=== PATIENT | male | born 1985 | race Caucasian/White ===

== ENCOUNTER 2016-06-10 18:21 | Emergency (ER) | payer BC ==
[2016-06-10 18:44] VITALS: BP 144/75
--- NOTE | 2016-06-10 19:52 | ER Document Report ---
ED Hand/Wrist Injury - General Chief Complaint: Hand Pain Stated Complaint: RIGHT HAND INJURY Mode of Arrival: Ambulatory Information source: Patient Notes: 30-year-old male presents to the emergency department complaining of right hand pain. Patient reports punched a door with a closed fist this afternoon. Denies numbness, tingling, or color changes. TRAVEL OUTSIDE OF THE [place] IN LAST 30 DAYS: No - HPI Injury to: Hand Onset: Just prior to arrival Timing: Still present Quality of pain: Achy Severity: Mild Pain Level: 2 Context: Blow - Related Data Allergies/Adverse Reactions: fluticasone propionate [From Advair Diskus] Adverse Reaction (Verified 01/20/13 19:25) salmeterol xinafoate [From Advair Diskus] Adverse Reaction (Verified 01/20/13 19 :25) Past Medical History - General Information source: Patient - Social History Smoking Status: Never Smoker Frequency of alcohol use: Social Drug Abuse: None Lives with: Family Family History: Reviewed & Not Pertinent Pulmonary Medical History: Reports: Hx Asthma, Hx Bronchitis Renal/ Medical History: Denies: Hx Peritoneal Dialysis Past Surgical History: Reports: Hx Orthopedic Surgery - Right foot - Immunizations Hx Diphtheria, Pertussis, Tetanus Vaccination: Yes Review of Systems - Review of Systems Constitutional: No symptoms reported EENT: No symptoms reported Cardiovascular: No symptoms reported Respiratory: No symptoms reported Gastrointestinal: No symptoms reported Genitourinary: No symptoms reported Male Genitourinary: No symptoms reported Musculoskeletal: See HPI Skin: No symptoms reported Hematologic/Lymphatic: No symptoms reported Neurological/Psychological: No symptoms reported -: Yes All other systems reviewed and negative Physical Exam - Vital signs Vitals: Temp Pulse Resp BP Pulse Ox 98.5 F 93 16 144/75 H 95 06/10/16 18:41 06/10/16 18:41 06/10/16 18:41 06/10/16 18:41 06/10/16 18:41 - General General appearance: Appears well, Alert In distress: None - HEENT Head: Normocephalic, Atraumatic Eyes: Normal Pupils: PERRL - Respiratory Respiratory status: No respiratory distress Chest status: Nontender Breath sounds: Normal Chest palpation: Normal - Cardiovascular Rhythm: Regular Heart sounds: Normal auscultation Murmur: No Pulses: Normal: Radial Normal capillary refill: Yes - Back Back: Normal, Nontender - Extremities General upper extremity: Normal inspection, Nontender, Normal color, Normal ROM , Normal strength, Normal temperature. No: Edema General lower extremity: Normal inspection, Nontender, Normal color, Normal ROM , Normal strength, Normal temperature, Normal weight bearing. No: Edema Shoulder: Normal, Nontender Arm: Normal, Nontender Elbow: Normal, Nontender Forearm: Normal, Nontender Wrist: Normal, Nontender. No: Axial load of thumb pain, Deformity, Dislocation , Ecchymosis, Instability, Limited ROM, Navicular tenderness Hand: Tender - Tenderness to palpation to mid dorsal lateral aspect of right hand over the fourth and fifth metacarpal area. No gross deformity or instability. Full but painful active and against resistance range of motion. Neurovascular function intact with immediate capillary refill and distal sensation intact, Ecchymosis, Swelling. No: Deformity, Instability, Laceration , Tendon deficit - Neurological Neuro grossly intact: Yes Cognition: Normal Orientation: AAOx4 [place] Coma Scale Eye Opening: Spontaneous [place] Coma Scale Verbal: Oriented [place] Coma Scale Motor: Obeys Commands D[place] Coma Scale Total: 15 Speech: Normal Motor strength normal: LUE, RUE, LLE, RLE Sensory: Normal - Skin Skin Temperature: Warm Skin Moisture: Dry Skin Color: Normal Course - Re-evaluation Re-evalutation: 06/10/16 20:52 Patient hemodynamically stable, in no distress. X-rays shows nondisplaced fracture of base of fifth right metacarpal. Old healed distal fifth metacarpal fracture and questionable lucency to the distal ulna however patient is not tender to that area. Neurovascular function intact. Splint placed. Patient appears stable for discharge and agrees with home care, follow-up with orthopedics, and ED return precautions. - Vital Signs Vital signs: Temp Pulse Resp BP Pulse Ox 98.5 F 93 16 144/75 H 95 06/10/16 18:41 06/10/16 18:41 06/10/16 18:41 06/10/16 18:41 06/10/16 18:41 - Diagnostic Test Radiology reviewed: Image reviewed, Reports reviewed Procedures - Immobilization Right Arm Time completed: 20:54 Pre-Proc Neuro Vasc Exam: Normal Immobilizer type: Volar splint - Volar and dorsal splint extending from MCP's to distal third forearm., Sling Performed by: PCT Post-Proc Neuro Vasc Exam: Normal Alignment checked and good: Yes Discharge - Discharge Clinical Impression: Fracture, metacarpal Qualifiers: Encounter type: initial encounter Metacarpal bone: fifth Fracture type: closed Metacarpal location: base Fracture alignment: nondisplaced Laterality: right Condition: Stable Disposition: HOME, SELF-CARE Instructions: Fractured Metacarpal ([facility]), Splint Precautions ([facility]), Oral Narcotic Medication ([facility]), Temporary Sling ([facility]), Ice & Elevation ([facility]), Use of [id number] Ibuprofen ([facility]) Additional Instructions: Follow-up with orthopedics on Sunday as discussed. Returned to the Emergency Department for any worsening symptoms or concerns. Prescriptions: Hydrocodone/Acetaminophen [[place] 5-325 mg Tablet] 1 tab PO Q6H PRN #8 tablet PRN Reason: Forms: Elevated Blood Pressure Referrals: CRYSTAL WANG MD [Primary Care Provider] - Follow up in 3-5 days JENNY SHIPMAN DO [ACTIVE STAFF] - 06/12/16
== END 2016-06-10 21:03 | disposition home or self-care (01) ==
LOC: ER 18:21
PROC: 2W3CX1Z Immobilization of Right Lower Arm using Splint (ICD-10-PCS; principal; 2016-06-10)
DX: S62.316A Displaced fracture of base of fifth metacarpal bone, right hand, initial encounter for closed fracture (principal); M79.641 Pain in right hand; W22.01XA Walked into wall, initial encounter
CPT/HCPCS: 99283

== ENCOUNTER 2016-06-11 05:18 | Emergency (ER) | payer BC ==
--- NOTE | 2016-06-11 05:24 | ER Document Report ---
Doctor's Note Notes: 06/11/16 05:23 I performed a quick triage evaluation the patient. Patient is a 22-year-old male who presents from home with difficulty breathing. He has a history of asthma. He is out of his inhaler. He received 2 DuoNeb treatments in route via the paramedics. He received Solu-Medrol. He is feeling improved. He takes denies any fevers or recent infections. Patient still has some scattered wheezing. I'll give him 2 g magnesium. We'll keep him on a monitor to make sure he continues to improve and do well. Dictation of this chart was performed using voice recognition software; therefore, there may be some unintended grammatical errors.
[2016-06-11] MEDS: MAGNESIUM SULFATE/D5W 100 ML IV SCH ×2 (05:34→05:55)
--- NOTE | 2016-06-11 06:17 | ER Document Report ---
ED Respiratory Problem - General Mode of Arrival: Medic Information source: Patient TRAVEL OUTSIDE OF THE [place] IN LAST 30 DAYS: No - HPI Patient complains to provider of: Asthma Onset: Yesterday Duration: Better EMS treatments: Bronchodilators, Solumedrol Associated symptoms: Difficulty breathing, Short of breath, Wheezing Recently seen / treated by doctor: Yes - General Chief Complaint: Breathing Difficulty Stated Complaint: DIFFICULTY BREATHING Notes: Patient is a 30-year-old male with a history of asthma presenting to the emergency department this morning with concerns of difficulty breathing. Patient was seen here yesterday for a broken arm, and states that his symptoms actually started at that time, but he thought that he had his inhaler at home. Patient states that he let his mom reasons his inhaler when she needed it, and she accidentally took it home with her. Patient denies any cold or flu symptoms. Patient was given 2 Albuterol treatments, 1A&A and 125mg Solumedrol en route by EMS. (JAYDA MARROQUIN) - Related Data Allergies/Adverse Reactions: fluticasone propionate [From Advair Diskus] Adverse Reaction (Verified 01/20/13 19:25) salmeterol xinafoate [From Advair Diskus] Adverse Reaction (Verified 01/20/13 19 :25) Past Medical History - General Information source: Patient - Social History Smoking Status: Never Smoker Occupation: [employer] Lives with: Alone Family History: Reviewed & Not Pertinent Pulmonary Medical History: Reports: Hx Asthma, Hx Bronchitis Renal/ Medical History: Denies: Hx Peritoneal Dialysis Past Surgical History: Reports: Hx Orthopedic Surgery - Right foot - Immunizations Hx Diphtheria, Pertussis, Tetanus Vaccination: Yes Review of Systems - Review of Systems Constitutional: No symptoms reported EENT: No symptoms reported Cardiovascular: No symptoms reported Respiratory: See HPI, Short of breath, Wheezing Gastrointestinal: No symptoms reported Genitourinary: No symptoms reported Male Genitourinary: No symptoms reported Musculoskeletal: No symptoms reported Skin: No symptoms reported Hematologic/Lymphatic: No symptoms reported Neurological/Psychological: No symptoms reported -: Yes All other systems reviewed and negative Physical Exam - Vital signs Interpretation: Normal - General General appearance: Appears well, Alert - HEENT Head: Normocephalic, Atraumatic Eyes: Normal Pupils: PERRL - Respiratory Respiratory status: No respiratory distress Chest status: Nontender Breath sounds: Wheezing - Mild expiratory wheeze Chest palpation: Normal - Cardiovascular Rhythm: Regular Heart sounds: Normal auscultation Murmur: No - Abdominal Inspection: Normal Distension: No distension Bowel sounds: Normal Tenderness: Nontender Organomegaly: No organomegaly - Back Back: Normal, Nontender - Extremities General lower extremity: Normal inspection, Nontender Forearm: Other - Splint over right forearm - Neurological Neuro grossly intact: Yes Cognition: Normal Orientation: AAOx4 [place] Coma Scale Eye Opening: Spontaneous [place] Coma Scale Verbal: Oriented [place] Coma Scale Motor: Obeys Commands [place] Coma Scale Total: 15 Speech: Normal - Psychological Associated symptoms: Normal affect, Normal mood - Skin Skin Temperature: Warm Skin Moisture: Dry Skin Color: Normal - Vital signs Vitals: Resp Pulse Ox 14 95 06/11/16 05:25 06/11/16 05:25 Discharge - Discharge Clinical Impression: Asthma attack Additional Instructions: Start the prednisone on Sunday morning. Using inhalers as needed. Drink plenty of fluids today. Rest today. Follow-up with your primary care provider as needed. RETURN TO THE EMERGENCY ROOM IF ANY NEW OR WORSENING SYMPTOMS. Prescriptions: Albuterol Sulfate [Proair HFA] 1 - 2 puff IH Q4 PRN #1 inhaler PRN Reason: Prednisone [Deltasone 10 mg Tablet] 10 mg PO ASDIR PRN #21 tablet PRN Reason: Scribe Attestation: 06/11/16 06:25 I personally performed the services described in the documentation, reviewed and edited the documentation which was dictated to the scribe in my presence, and it accurately records my words and actions. (RUTHIE SALAZAR) Scribe Documentation - Scribe Written by Chetan:: Jayda Marroquin 06/11/2016 0617 acting as scribe for :: Shannon
[2016-06-11] MEDS ORDERED: PREDNISONE 20 MG TABLET PO ONE (06:21)
[2016-06-11] MEDS ORDERED: ALBUTEROL SULFATE HFA (90 MCG/PUFF) 8 GM MDI (1 MDI/ER DISP) IH ONE (06:22)
[2016-06-11 06:30] VITALS: BP 122/76
== END 2016-06-11 06:39 | disposition home or self-care (01) ==
LOC: ER 05:18
DX: J45.901 Unspecified asthma with (acute) exacerbation (principal); R06.02 Shortness of breath
CPT/HCPCS: 99285; 96365; J3475; J7512; J3490